=== PATIENT | female | born 1955 | race Caucasian/White ===

== ENCOUNTER 2021-01-27 10:13 | Outpatient (CLI) | payer BC | END 2021-01-27 10:14 | disposition home or self-care (01) | LOC: BURRAD 10:13 | PROVIDERS: ATTEND Family Medicine | DX: R06.02 Shortness of breath (principal); R91.8 Other nonspecific abnormal finding of lung field | CPT/HCPCS: 71046 ==

== ENCOUNTER 2021-06-28 21:09 | Emergency (ER) | payer BC ==
[2021-06-28] MEDS ORDERED: Cephalexin 250 MG CAP ONE (21:45)
== END 2021-06-28 21:48 | disposition home or self-care (01) ==
LOC: BURERS 21:09
DX: L03.032 Cellulitis of left toe (principal); M10.9 Gout, unspecified; E11.9 Type 2 diabetes mellitus without complications; I10 Essential (primary) hypertension; Z79.899 Other long term (current) drug therapy; Z79.84 Long term (current) use of oral hypoglycemic drugs
CPT/HCPCS: 99283

== ENCOUNTER 2021-12-19 10:53 | Outpatient (CLI) | payer BC | END 2021-12-19 10:54 | disposition home or self-care (01) | LOC: BURRAD 10:53 | PROVIDERS: ATTEND Family Medicine | DX: R06.02 Shortness of breath (principal); J98.4 Other disorders of lung | CPT/HCPCS: 71046 ==